=== PATIENT | female | born 1985 | race Two or more races ===

== ENCOUNTER 2020-05-28 01:10 | Emergency (ER) | payer BC ==
[~2020-05-28] VITALS: Ht 167.6 cm; Wt 63.5 kg
[2020-05-28] MEDS ORDERED: CELEBREX100 MG PO (12:21)
[2020-05-28] MEDS ORDERED: PEPCID AC20 MG PO (12:21)
== END 2020-05-28 12:32 | disposition home or self-care (01) ==
LOC: ER 01:10
DX: K29.60 Other gastritis without bleeding (principal); R10.11 Right upper quadrant pain